=== PATIENT | female | born 1990 ===

== ENCOUNTER 2017-06-10 23:54 | Emergency (ER) | payer MEDICAID, OTHER ==
--- NOTE | 2017-06-11 01:21 | ED PDOC ---
Arrival/HPI - General Historian: Patient - History of Present Illness Symptom Onset: Gradual Symptom Course: Worsening <Judy Hooker - Last Filed: 06/11/17 02:28> <Wes Escalera - Last Filed: 06/11/17 07:11> - General Chief Complaint: Psychiatric Evaluation Time Seen by Provider: 06/11/17 00:42 - History of Present Illness Narrative History of Present Illness (Text): 06/11/17 01:19 27-year-old female with a history of depression presents today with suicidal ideation and depression and anxiety. Patient states she's been feeling like this for a while and today she had thoughts of jumping in front of a train to kill herself. Patient denies chest pain or shortness of breath. Denies abdominal pain. No nausea or vomiting. Denies dizziness or weakness. Patient states she has not taken psychiatric medications in a while. No fevers or chills. No other complaints (Judy Hooker) Past Medical History - Provider Review Nursing Documentation Reviewed: Yes - Travel History Have you recently traveled outside [place] w/in the past 3 mons?: No - Infectious Disease Hx of Infectious Diseases: None - Reproductive Menopause: No - Cardiac Hx Cardiac Disorders: No - Pulmonary Hx Respiratory Disorders: No - Neurological Hx Neurological Disorder: No - HEENT Hx HEENT Disorder: No - Renal Hx Renal Disorder: No - Endocrine/Metabolic Hx Endocrine Disorders: No - Hematological/Oncological Hx Blood Disorders: No - Integumentary Hx Dermatological Disorder: No - Musculoskeletal/Rheumatological Hx Musculoskeletal Disorders: No - Gastrointestinal Hx Gastrointestinal Disorders: No - Genitourinary/Gynecological Hx Genitourinary Disorders: No - Psychiatric Hx Psychophysiologic Disorder: Yes Hx Anxiety: Yes Hx Bipolar Disorder: Yes Hx Depression: Yes Hx Substance Use: No Other/Comment: OCD, ADHD - Anesthesia Hx Anesthesia: No <Judy Hooker - Last Filed: 06/11/17 02:28> Family/Social History - Physician Review Nursing Documentation Reviewed: Yes Family/Social History: Unknown Family HX Smoking Status: Heavy Smoker > 10 Cigarettes Daily Hx Alcohol Use: Yes Frequency of alcohol use: Few days per week Hx Substance Use: No <Judy Hooker - Last Filed: 06/11/17 02:28> Allergies/Home Meds <Judy Hooker - Last Filed: 06/11/17 02:28> <Wes Escalera - Last Filed: 06/11/17 07:11> Allergies/Adverse Reactions: Allergies No Known Allergies Allergy (Verified 06/11/17 00:46) Home Medications: Home Meds Medication Instructions Recorded Confirmed Unobtainable 06/11/17 06/11/17 Review of Systems - Review of Systems Constitutional: absent: Fatigue, Fevers Respiratory: absent: SOB, Cough Cardiovascular: absent: Chest Pain, Palpitations Gastrointestinal: absent: Abdominal Pain, Nausea, Vomiting Genitourinary Female: absent: Dysuria Musculoskeletal: absent: Arthralgias Skin: absent: Rash, Pruritis Neurological: absent: Headache, Dizziness Psychiatric: Anxiety, Depression, Suicidal Ideation <Judy Hooker Last Filed: 06/11/17 02:28> Physical Exam Vital Signs Reviewed: Yes Temperature: Afebrile Blood Pressure: Normal Pulse: Regular Respiratory Rate: Normal Appearance: Positive for: Well-Appearing, Non-Toxic, Comfortable Pain Distress: None Mental Status: Positive for: Alert and Oriented X 3 - Systems Exam Head: Present: Atraumatic Mouth: Present: Moist Mucous Membranes Neck: Present: Normal Range of Motion Respiratory/Chest: Present: Clear to Auscultation Cardiovascular: Present: Regular Rate and Rhythm Abdomen: No: Tenderness Upper Extremity: Present: Normal ROM Lower Extremity: Present: Normal ROM Neurological: Present: GCS=15, Speech Normal Skin: Present: Warm, Dry Psychiatric: Present: Alert, Oriented x 3 <Judy Hooker Last Filed: 06/11/17 02:28> Vital Signs Temp Pulse Resp BP Pulse Ox 06/11/17 04:00 78 17 103/67 98 06/11/17 02:00 79 17 104/66 98 06/10/17 23:54 98.0 F 84 18 102/65 96 Medical Decision Making <Judy Hooker Last Filed: 06/11/17 02:28> - Lab Interpretations I have reviewed the lab results: Yes - EKG Interpretation Interpreted by ED Physician: Yes Type: 12 lead EKG - Transfer of Care Patient signed out to Dr:: Margaret Other: PES evaluation/final disposition <Wes Escalera - Last Filed: 06/11/17 07:11> ED Course and Treatment: 06/11/17 01:20 Patient is nontoxic well-appearing in no distress vital signs are stable. pt with depression and SI pt placed on 1:1 CBC CMP Tylenol Salicylate Alcohol level Urine drug screen UA; cxr: ek06/11/17 02:27 case signed out to dr. escalera pending lab results and PES evaluation and disposition. (Judy Hooker) 06/11/17 02:27 Case endorsed to me by KLEVER Hooker, pending labs, EKG, PES evaluation, and disposition. 06/11/17 05:15 Reviewed EKG, NSR at [address]-segment elevations or depressions, no T-wave inversions, normal intervals. (Wes Escalera) - Lab Interpretations Lab Results: 06/11/17 02:00 06/11/17 02:00 Lab Results 06/11/17 02:00: Alcohol, Quantitative 15 H 06/11/17 02:00: Salicylates < 1 L, Acetaminophen < 10.0 L 06/11/17 02:00: Sodium 140, Potassium 4.0, Chloride 103, Carbon Dioxide 25, Anion Gap 16, BUN 10, Creatinine 0.7, Est GFR ( Amer) > 60, Est GFR (Non- Af Amer) > 60, Random Glucose 85, Calcium 9.2, Total Bilirubin 0.7, AST 27, ALT 34, Alkaline Phosphatase 66, Total Protein 7.3, Albumin 4.2, Globulin 3.2, Albumin/Globulin Ratio 1.3 06/11/17 02:00: WBC 13.4 H, RBC 4.34, Hgb 13.8, Hct 40.5, MCV 93.3, MCH 31.8, MCHC 34.1, RDW 13.0, Plt Count 293, MPV 10.4, Gran % 57.7, Lymph % (Auto) 30.1, [place] % (Auto) 8.0 H, Eos % (Auto) 3.7, Baso % (Auto) 0.5, Gran # 7.75 H, Lymph # 4.0 H, [place] # 1.1 H, Eos # 0.5, Baso # 0.07 - RAD Interpretation Radiology Orders: 06/11/17 01:00 CHEST PORTABLE [RAD] Stat - PA / BUSGIRL / Resident Statement /DO has reviewed & agrees with the documentation as recorded. MD/DO has examined the patient and agrees with the treatment plan. <Wes Escalera - Last Filed: 06/11/17 07:11> Disposition/Present on Arrival - Present on Arrival History of DVT/PE: No History of Uncontrolled Diabetes: No Urinary Catheter: No History of Decub. Ulcer: No History Surgical Site Infection Following: None <Judy Hooker - Last Filed: 06/11/17 02:28> - Present on Arrival Any Indicators Present on Arrival: No - Disposition Have Diagnosis and Disposition been Completed?: No Disposition Time: 07:00 <Wes Escalera - Last Filed: 06/11/17 07:11> - Disposition Diagnosis: Depression Patient Problems: Current Active Problems Problem Status Onset Depression Acute Condition: STABLE Referrals: PCP,NO [Primary Care Provider] - Follow up with primary Forms: [facility] [employer] (Danish)
[2017-06-11 02:20] LABS: BASO # 0.07 K/mm3 (0.0-2.0); BASO % 0.5 % (0.0-3.0); EOS # 0.5 (0.0-0.7); EOS % 3.7 % (1.5-5.0); GRAN # 7.75 (1.4-6.5); GRAN % 57.7 % (50.0-68.0); HEMATOCRIT 40.5 % (36.0-48.0); LYMPH % 30.1 % (22.0-35.0); MEAN CELL VOLUME 93.3 fl (80.0-105.0); MEAN CORPUSCULAR HEMOGLOBIN 31.8 pg (25.0-35.0); MEAN CORPUSCULAR HGB CONC 34.1 g/dl (31.0-37.0); MEAN PLATELET VOLUME 10.4 fl (7.0-11.0); MONO # 1.1 (0.1-0.6); WHITE BLOOD COUNT 13.4 10^3/ul (4.5-11.0)
[2017-06-11 02:33] LABS: ALB/GLOB RATIO 1.3 (1.1-1.8); ALKALINE PHOSPHATASE 66 U/L (38-126); ALT/SGPT 34 U/L (7-56); AST/SGOT 27 U/L (14-36); BILIRUBIN,TOTAL 0.7 mg/dL (0.2-1.3); BLOOD UREA NITROGEN 10 mg/dL (7-21); CALCIUM 9.2 mg/dL (8.4-10.5); CARBON DIOXIDE 25 mmol/L (21-33); CHLORIDE 103 mmol/L (95-110); GFR AFRICAN-AMERICAN > 60; GLUCOSE,RANDOM 85 mg/dL (70-110); SODIUM 140 mmol/L (132-148); TOTAL PROTEIN 7.3 g/dL (5.8-8.3)
[2017-06-11 07:23] LABS: PH,URINE 5.5 (4.7-8.0); URINE BILIRUBIN NEGATIVE (NEGATIVE); URINE BLOOD LARGE (NEGATIVE); URINE GLUCOSE (UA) NEGATIVE (NEGATIVE); URINE KETONE NEGATIVE (NEGATIVE); URINE LEUKOCYTE ESTERASE TRACE Leu/uL (NEGATIVE); URINE PROTEIN NEGATIVE mg/dL (<30 mg/dL); URINE UROBILINOGEN 0.2 E.U./dL (<1 E.U./dL)
[2017-06-11 07:24] LABS: URINE APPEARANCE CLEAR (CLEAR); URINE COLOR YELLOW (YELLOW)
--- NOTE | 2017-06-11 07:34 | ED PDOC ---
Physical Exam Vital Signs Reviewed: Yes Vital Signs Temp Pulse Resp BP Pulse Ox 06/11/17 10:42 98.6 F 82 17 100/60 100 06/11/17 09:00 98.4 F 80 17 120/82 100 06/11/17 07:15 98.4 F 80 18 116/63 100 06/11/17 06:00 83 16 114/48 L 94 L 06/11/17 04:00 78 17 103/67 98 06/11/17 02:00 79 17 104/66 98 06/10/17 23:54 98.0 F 84 18 102/65 96 Temperature: Afebrile Blood Pressure: Normal Pulse: Regular Respiratory Rate: Normal Appearance: Positive for: Well-Appearing, Non-Toxic, Comfortable Pain Distress: None Mental Status: Positive for: Alert and Oriented X 3 Medical Decision Making ED Course and Treatment: 06/11/17 07:33 Case signed out from overnight. Patient pending PES evaluation. Patient was seen by PES, no beds upstairs, need to call access and search for beds. 06/11/17 08:20 Patient is medically cleared for psychiatric admission. 06/11/17 11:22 Patient was seen by Erna PINEDA. Patient is accepted by , accepting physician Dr. Farias. - Lab Interpretations Lab Results: 06/11/17 02:00 06/11/17 02:00 Lab Results 06/11/17 07:00: Urine Opiates Screen Negative, Urine Methadone Screen Negative, Ur Barbiturates Screen Negative, Ur Phencyclidine Scrn Negative, Ur Amphetamines Screen Negative, U Benzodiazepines Scrn Negative, U Oth Cocaine Metabols Negative, U Cannabinoids Screen Negative 06/11/17 07:00: Urine Color Yellow, Urine Appearance Clear, Urine pH 5.5, Ur Specific [place] 1.020, Urine Protein Negative, Urine Glucose (UA) Negative, Urine Ketones Negative, Urine Blood Large H, Urine Nitrate Negative, Urine Bilirubin Negative, Urine Urobilinogen 0.2, Ur Leukocyte Esterase Trace H, Urine RBC 5 - 10, Urine WBC 0 - 2, Ur Epithelial Cells 3 - 4, Urine Bacteria Trace 06/11/17 02:00: Alcohol, Quantitative 15 H 06/11/17 02:00: Salicylates < 1 L, Acetaminophen < 10.0 L 06/11/17 02:00: Sodium 140, Potassium 4.0, Chloride 103, Carbon Dioxide 25, Anion Gap 16, BUN 10, Creatinine 0.7, Est GFR ( Amer) > 60, Est GFR (Non- Af Amer) > 60, Random Glucose 85, Calcium 9.2, Total Bilirubin 0.7, AST 27, ALT 34, Alkaline Phosphatase 66, Total Protein 7.3, Albumin 4.2, Globulin 3.2, Albumin/Globulin Ratio 1.3 06/11/17 02:00: WBC 13.4 H, RBC 4.34, Hgb 13.8, Hct 40.5, MCV 93.3, MCH 31.8, MCHC 34.1, RDW 13.0, Plt Count 293, MPV 10.4, Gran % 57.7, Lymph % (Auto) 30.1, [place] % (Auto) 8.0 H, Eos % (Auto) 3.7, Baso % (Auto) 0.5, Gran # 7.75 H, Lymph # 4.0 H, [place] # 1.1 H, Eos # 0.5, Baso # 0.07 I have reviewed the lab results: Yes - RAD Interpretation Radiology Orders: 06/11/17 01:00 CHEST PORTABLE [RAD] Stat - Medication Orders Current Medication Orders: Nicotine (Nicoderm Cq) 1 patch TD DAILY NENA - Scribe Statement The provider has reviewed the documentation as recorded by the Caren Cui Provider Scribe Attestation: All medical record entries made by the Scribe were at my direction and personally dictated by me. I have reviewed the chart and agree that the record accurately reflects my personal performance of the history, physical exam, medical decision making, and the department course for this patient. I have also personally directed, reviewed, and agree with the discharge instructions and disposition. Disposition/Present on Arrival - Present on Arrival Any Indicators Present on Arrival: No History of DVT/PE: No History of Uncontrolled Diabetes: No Urinary Catheter: No History of Decub. Ulcer: No History Surgical Site Infection Following: None - Disposition Have Diagnosis and Disposition been Completed?: Yes Diagnosis: Depression Disposition: Trans to Other Acute Care Hosp Disposition Time: 11:22 Patient Plan: Transfer To ([facility] Patient Problems: Current Active Problems Problem Status Onset Depression Acute Condition: STABLE Referrals: PCP,NO [Primary Care Provider] - Follow up with primary Forms: [facility] ([place])
[2017-06-11 07:40] LABS: URINE BACTERIA TRACE (NEG); URINE WBC 0 - 2 /hpf (0-6)
--- NOTE | 2017-06-11 09:31 | RAD ---
HISTORY: pes eval COMPARISON: No prior. FINDINGS: LUNGS: No active pulmonary disease. PLEURA: No significant pleural effusion identified, no pneumothorax apparent. CARDIOVASCULAR: Normal. OSSEOUS STRUCTURES: No significant abnormalities. VISUALIZED UPPER ABDOMEN: Normal. OTHER FINDINGS: None. IMPRESSION: No active disease.
[2017-06-11 10:33] VITALS: RESP 17; O2SAT 100
[2017-06-11 10:43] VITALS: TEMP 98.6
[2017-06-11 13:12] VITALS: BP 110/64; PULSE 80
--- NOTE | 2017-06-11 23:14 | CARD ---
APPROVED REPORT EKG Measurement Heart [id number] <Conclusion> Normal sinus rhythm Normal ECG
== END 2017-06-11 13:36 | disposition short-term general hospital (02) ==
LOC: ED 23:54
DX: F32.9 Major depressive disorder, single episode, unspecified (principal)